=== PATIENT | male | born 1980 | race Caucasian/White ===

== ENCOUNTER 2022-01-09 11:56 | Emergency (ER) | payer MEDICAID ==
[~2022-01-09] VITALS: Ht 162.6 cm; Wt 45.0 kg
[2022-01-09 11:59] VITALS: BP 128/58
== END 2022-01-09 15:44 | disposition left against medical advice (07) ==
LOC: ER 12:52
DX: Z53.21 Procedure and treatment not carried out due to patient leaving prior to being seen by health care provider (principal)